=== PATIENT | female | born 1975 | race Caucasian/White ===

== ENCOUNTER 2019-07-19 02:10 | Outpatient (CLI) | payer OTHER ==
[~2019-07-19 02:10] MED LIST: OXYC-150 PO
== END 2019-07-19 23:59 | disposition home or self-care (01) ==
LOC: DIABETIC 02:10
PROVIDERS: ATTEND Family Medicine
DX: E66.9 Obesity, unspecified (principal); R73.03 Prediabetes
CPT/HCPCS: 97802

== ENCOUNTER 2019-08-23 01:29 | Outpatient (CLI) | payer OTHER | END 2019-08-23 23:59 | disposition home or self-care (01) | LOC: DIABETIC 01:29 | PROVIDERS: ATTEND Family Medicine | DX: R73.03 Prediabetes (principal); E66.9 Obesity, unspecified | CPT/HCPCS: G0108 ==